=== PATIENT | female | born 1980 ===

== ENCOUNTER 2018-10-13 05:10 | Day surgery (SDC) | payer OTHER ==
[~2018-10-13] VITALS: Ht 160 cm; Wt 78.0 kg
[2018-10-13] VITALS (10 sets, daily range): BP systolic 92–130; BP diastolic 51–85
[2018-10-13] MEDS ORDERED: NKM (05:48)
--- NOTE | 2018-10-13 06:22 | Anethesia Preoperative Eval ---
Anesthesia Pre-op PMH/ROS General Date of Evaluation: Oct 13, 2018 Time of Evaluation: 07:01 Anesthesiologist: Dayana ASA Score: ASA 2 Mallampati Score Class I : Soft palate, uvula, fauces, pillars visible Class II: Soft palate, uvula, fauces visible Class III: Soft palate, base of uvula visible Class IV: Only hard plate visible Mallampati Classification: Class II Surgeon: Fidel Diagnosis: L Knee Pain Surgical Procedure: L Knee Arthroscopy Anesthesia History: none Family History: no anesthesia problems Allergies: Coded Allergies: STRAWBERRY (Verified Allergy, Intermediate, 10/13/18) SKIN RASH Shrimp (Verified Allergy, Intermediate, 10/13/18) skin rash Uncoded Allergies: HORSE RADISH (Allergy, Severe, 10/13/18) SKIN RASH/WELTS Medications: see eMAR Patient NPO?: Yes Past Medical History Neurologic/Psychiatric: Reports: depression/anxiety Anesthesia Pre-op Phys. Exam Physician Exam Last Vital Signs Date Time Temp Pulse Resp B/P (MAP) Pulse Ox O2 Delivery O2 Flow Rate FiO2 10/13/18 05:55 97.7 71 20 115/79 100 Room Air Constitutional: NAD Neurologic: CN 2-12 intact Cardiovascular: RRR Respiratory: CTA Gastrointestinal: S/NT/ND Airway Exam Mallampati Score: Class II MO: full ROM: full Teeth: intact Anesthesia Pre-op A/P Labs Urine Test Test 10/13/18 05:25 Urine HCG, Qualitative Negative (NEGATIVE) Risk Assessment & Plan Assessment: ASA 2 Plan: GA, SED Status Change Before Surgery: No Pre-Antibiotics Dru Gram Ancef IV Given Within 1 Hr of Incision: Yes Time Given: 07:11 Ad Anne MD Oct 13, 2018 06:22
[2018-10-13] MEDS ORDERED: LR 1000ml 1,000 ML IVLG SCH (06:24)
--- NOTE | 2018-10-13 06:24 | 48 Hour Post Anesthesia Eval ---
Post Anesthesia Evaluation Procedure: L knee Arthroscopy Date of Evaluation: Oct 13, 2018 Time of Evaluation: 10:34 Blood Pressure Systolic: 115 0: 71 Pulse Rate: 68 Respiratory Rate: 18 Temperature (Fahrenheit): 98.4 O2 Sat by Pulse Oximetry: 100 Airway: patent Nausea: No Vomiting: No Pain Intensity: 2 Hydration Status: adequate Cardiopulmonary Status: Stable Mental Status/LOC: patient returned to baseline Follow-up Care/Observations: 0 Post-Anesthesia Complications: 0 Follow-up care needed: ready to discharge Ad Anne MD Oct 13, 2018 06:24
--- NOTE | 2018-10-13 06:24 | Immediate Post-Op Evaluation ---
Immediate Post-Op Evalulation Immediate Post-Op Evalulation Procedure: L knee Arthroscopy Date of Evaluation: Oct 13, 2018 Time of Evaluation: 08:27 IV Fluids: 500 LR Blood Products: 0 Estimated Blood Loss: 10 Urinary Output: 0 Blood Pressure Systolic: 95 Blood Pressure Diastolic: 52 Pulse Rate: 71 Respiratory Rate: 16 O2 Sat by Pulse Oximetry: 100 Temperature (Fahrenheit): 98.3 Pain Score (1-10): 2 Nausea: No Vomiting: No Complications 0 Patient Status: awake, reacts, patent, none Hydration Status: adequate Dru Gram Ancef IV Given Within 1 Hr of Incision: Yes Time Given: 07:11 Ad Anne MD Oct 13, 2018 06:24
[2018-10-13] MEDS ORDERED: Lidocaine 1% MPF 10mg/ml 5ml ONE (06:26)
[2018-10-13] MEDS ORDERED: Propofol 200mg/20ml IV ONE (06:26)
[2018-10-13] MEDS ORDERED: Sodium Chloride 10ml vial INJ ONE ×2 (06:26→07:47)
[2018-10-13] MEDS ORDERED: Dexamethasone 4mg/ml vial ONE (06:26)
[2018-10-13] MEDS ORDERED: Meperidine 50mg/ml Inj(FOR RIGORS ONLY) IVP PRN (06:30)
[2018-10-13] MEDS ORDERED: Hydromorphone 0.5mg/0.5ml inj IVP PRN (06:30)
[2018-10-13] MEDS ORDERED: fentaNYL 100 mcg/2 mL IV PRN (06:30)
[2018-10-13] MEDS ORDERED: Midazolam 2mg/2ml Inj IVP PRN (06:30)
[2018-10-13] MEDS ORDERED: LORazepam Inj 2mg/ml 1ml IV PRN (06:30)
[2018-10-13] MEDS ORDERED: Atropine Sulfate 0.4mg/ml inj IVP PRN (06:30)
[2018-10-13] MEDS ORDERED: oxyCODONE HCL/Acetaminophen 5/325mg ORAL PRN (06:30)
[2018-10-13] MEDS ORDERED: Acetaminophen (Non formulary) 100 ML IV ONE (06:30)
[2018-10-13] MEDS ORDERED: Norco 5mg/325mg tab ORAL PRN (06:30)
[2018-10-13] MEDS ORDERED: DiphenhydrAMINE 50mg/ml Inj IVP PRN (06:30)
[2018-10-13] MEDS ORDERED: Metoclopramide 10mg/2ml Inj IVP PRN (06:30)
[2018-10-13] MEDS ORDERED: Ketorolac 30mg Inj IV PRN ×2 (06:30)
[2018-10-13] MEDS ORDERED: HYDROcodone/Acetamin 7.5/325 tab ORAL PRN (06:30)
[2018-10-13] MEDS ORDERED: Bupivacaine w/Epi 0.5% 30ml Vial INJ ONE (06:58)
[2018-10-13] MEDS ORDERED: EPINEPHrine 1mg/1ml Amp ONE (06:58)
[2018-10-13] MEDS ORDERED: LR 1000ml ONE (07:00)
[2018-10-13] MEDS ORDERED: NS Irrig 4000ml IRRIG ONE (07:00)
--- NOTE | 2018-10-13 07:20 | Pre-Procedure Note/Attestation ---
Pre-Procedure Note/Attestation Complete Prior to Procedure Planned Procedure: left Procedure Narrative: knee scope and medial meniscectomy Indications for Procedure Pre-Operative Diagnosis: lt knee mm tear Attestation I attest that I discussed the nature of the procedure; its benefits; risks and complications; and alternatives (and the risks and benefits of such alternatives ), prior to the procedure, with the patient (or the patient's legal senior human resources representative). I attest that, if there was a reasonable possibility of needing a blood transfusion, the patient (or the patient's legal senior human resources representative) was given the [facility] standardized written summary, pursuant to the Jaylon Marko Blood Safety Act ([place] Health and Safety Code # 1645, as amended). I attest that I re-evaluated the patient just prior to the surgery and that there has been no change in the patient's H&P, except as documented below: Jorge Parra MD Oct 13, 2018 07:20
[2018-10-13] MEDS ORDERED: Succinylcholine 20mg/ml 10ml vial ONE (07:45)
[2018-10-13] MEDS ORDERED: fentaNYL 100 mcg/2 mL IV ONE (07:47)
--- NOTE | 2018-10-15 17:30 | Operative Note - Dictated ---
DATE OF OPERATION: 10/13/2018 PREOPERATIVE DIAGNOSIS: Left knee medial meniscus tear. POSTOPERATIVE DIAGNOSIS: Left knee medial meniscus tear. SURGEON: Jorge Parra M.D. EXERCISE SPECIALIST: None. INDICATION FOR OPERATION: This is an approximately 38-year-old female, who is status post trauma. She has persistent left knee pain refractory to conservative measures. MRI showed a medial meniscus tear. She is now brought in for elective surgery. ESTIMATED BLOOD LOSS: 5 mL. TOURNIQUET TIME: Zero. ANESTHESIA: General LMA. It is noted that the patient required more anesthetic than was expected for adequate intraoperative pain control. COMPLICATIONS: None. DESCRIPTION OF PROCEDURE IN DETAIL: The patient was brought into the operating room, identified as the patient. The left knee was prepped and draped in usual sterile fashion. The site had been marked preoperatively. A time out was performed. An arthroscopic portal was established anterolaterally and the arthroscope was introduced into the knee. A thorough inspection was carried out of the contents of the knee. The patellofemoral joint and suprapatellar pouch were normal. The lateral gutter and medial gutter were normal. There was hypertrophy at the ligamentum mucosum and this was partially taken down to aid in visualization. No significant bleeding was encountered. The medial compartment was entered. At first appearance, the medial meniscus appeared to be normal. However, upon probing and having looked at the preoperative MRI, there was a defect on the undersurface of the meniscus that would admit a probe. This was fairly central in the meniscus and not felt to be repairable. A small upturn binder was used to turn back the meniscus tear to a stable rim. The articular surface remained excellent. Next, attention was directed to the notch. The ACL was well visualized up to its attachment on the femur and appeared to be intact. The knee was dressed. There was no usual instability noted. The arthroscope was then introduced into the anteromedial portal and a thorough inspection carried out of the lateral side of the knee, which was entirely normal. The articular surface was normal. The meniscus was probed and was normal. Another view of the patellofemoral joint was obtained from the medial portal and this was within normal limits. The arthroscope was removed from the knee. Excessive fluid was removed from the knee after the knee was irrigated with saline. The skin portals were closed using 4-0 Vicryl. Marcaine was instilled into the portals and into the knee to aid in postoperative pain control. Jorge Parra M.D. DR: BRADLEY JOB#: [id number] CC: Jorge Parra M.D.; [address] [place] [id number]; Fax#: [phone]
== END 2018-10-13 10:40 | disposition home or self-care (01) ==
LOC: SUR 05:10
DX: M23.204 Derangement of unspecified medial meniscus due to old tear or injury, left knee (principal); F17.210 Nicotine dependence, cigarettes, uncomplicated; E66.9 Obesity, unspecified; Z68.31 Body mass index [BMI] 31.0-31.9, adult; I10 Essential (primary) hypertension; F41.9 Anxiety disorder, unspecified; F32.9 Major depressive disorder, single episode, unspecified; Z91.018 Allergy to other foods
CPT/HCPCS: 29881; 81025; 97161; J0171; J0330; J0690; J1100; J2250; J2405; J2704; J3010; 94003; 94150